=== PATIENT | female | born 1985 | race Caucasian/White ===

== ENCOUNTER 2017-09-22 06:57 | Emergency (ER) | payer OTHER, SELFPAY ==
[2017-09-22 07:03] VITALS: BP 138/74; PULSE 110; RESP 16; TEMP 36.7; O2SAT 99; BMI 22.1
[2017-09-22 09:09] LABS: Basophils % 0.1 % (0.1-2.0); Eosinophils # 0.1 K/mm3 (0.0-0.4); Eosinophils % 0.5 % (0.1-12.0); Hemoglobin 16.2 g/dL (12.2-16.2); Lymphocytes # 1.5 K/mm3 (0.7-4.5); Lymphocytes % 14.5 K/mm3 (10-50); Mean Corpuscular HGB Conc 32.3 g/dL (31.8-35.4); Mean Corpuscular Hemoglobin 29.2 pg (27.0-31.2); Mean Corpuscular Volume 90.2 fl (81-99); Mean Platelet Volume 8.7 fl (7.4-10.4); Monocytes # 0.8 K/mm3 (0.1-1.0); Monocytes % 7.4 % (1.7-9.3); Neutrophils # 8.2 K/mm3 (1.8-7.8); Neutrophils % 77.5 % (37.0-80.0); Platelet Count 221 K/mm3 (142-424); Red Blood Count 5.54 M/mm3 (4.20-5.40); Red Cell Distribution Width 12.9 % (11.5-17.5); White Blood Count 10.6 K/mm3 (4.8-10.8)
--- NOTE | 2017-09-22 09:15 | HMH.EDGENADL ---
ED Disposition Clinical Impression: Abscess of neck, IV drug user Disposition: Xfer Short-Term Hosp Condition on Discharge: Fair Instructions: DI for Skin Abscess Additional Instructions: She will be transferred to [facility] under Dr. Kaur/ Jaxon service. Referrals: Dane Conn MD [Primary Care Provider] - - Critical Care Critical Care Time: No Attestation: On 09/22/17, the high probability of a clinically significant, sudden or life threatening deterioration of the following system(s) required my full and direct attention, intervention and personal management. The time I documented below is in addition to time spent performing reported procedures but includes the following listed in this critical care notation. Medical Decision Making - Sanket Inquiry Pt receiving controlled substance: No Sanket was queried for this patient: No Vital Signs: 09/22/17 07:03 09/22/17 10:28 Temperature 98.1 F 98.4 F Temperature Source Oral Oral Pulse Rate [Right Radial] 110 H 92 H Respiratory Rate 16 18 Blood Pressure [Right Arm] 138/74 120/72 Blood Pressure Mean [Right Arm] 95 88 Blood Pressure Source [Right Arm] Automatic Cuff Automatic Cuff Blood Pressure Position [Right Arm] Sitting Sitting 02 Sat by Pulse Oximetry 99 98 Oxygen Delivery Method Room Air Room Air - Lab Data Lab Results 09/22/17 08:40: WBC 10.6, RBC 5.54 H, Hgb 16.2, Hct 50.0 H, MCV 90.2, MCH 29.2, MCHC 32.3, RDW 12.9, Plt Count 221, MPV 8.7, Neut % (Auto) 77.5, Lymph % (Auto) 14.5, Ashley % (Auto) 7.4, Eos % (Auto) 0.5, Baso % (Auto) 0.1, Neut # (Auto) 8.2 H, Lymph # (Auto) 1.5, Ashley # (Auto) 0.8, Eos # (Auto) 0.1, Baso # (Auto) 0.0 09/22/17 08:40: Sodium 136, Potassium 4.0, Chloride 98, Carbon Dioxide 29, Anion Gap 13.0, BUN 13, Creatinine 0.56, Estimated Creat Clear 133, Estimated GFR 128, Est GFR ( Amer) 155, Glucose 90, Calcium 9.7, Total Bilirubin 0.5, AST 12 L, ALT 24, Alkaline Phosphatase 96, Total Protein 8.4 H, Albumin 3.8, Globulin 4.6 H, Albumin/Globulin Ratio 0.8 L 09/22/17 08:40: Lactic Acid 1.2 Result diagrams: 09/22/17 08:40 09/22/17 08:40 Orders (Tests/Meds): ED MEDICATIONS Discontinued Medications Generic Name Dose Route Start Last Admin Trade Name Keyshawn PRN Reason Stop Dose Admin Vancomycin HCl 1,000 mg/ 250 mls @ 125 mls/hr 09/22/17 09:14 09/22/17 09:31 Sodium Chloride IV 09/22/17 09:15 125 mls/hr ONCE ONE Administration Protocol Ibuprofen 600 mg 09/22/17 09:15 09/22/17 09:31 Motrin 600mg Tablet PO 09/22/17 09:16 600 mg ONCE ONE Administration Iopamidol 75 ml 09/22/17 10:12 09/22/17 10:13 [id number]; 75ml Vial IV 09/22/17 10:13 75 ml ONCE ONE Administration Sodium Chloride 10 ml 09/22/17 10:12 09/22/17 10:13 Rad-Saline Flush 10ml Syringe IV 09/22/17 10:13 10 ml ONCE ONE Administration ORDERS Category Date Time Status Blood Culture Stat Micro 09/22/17 08:40 Received - CT Data CT Scan: C-Spine Time Received: 11:[address] Reviewed: Yes: I have viewed the radiologist's interpretation Preliminary Findings: Abnormal Findings Narrative: Please see the entire report. Medical Decision Narrative: Main the stable in no respiratory distress obtain the CT report. 11 Am I spoke with Dr Kaur from [facility] ED who accepted the patient. Also, I spoke with Dr Coates from ENT and gave him an update. General Adult HPI - General Chief complaint: Skin/Abscess/Foreign Body Stated complaint: Spot on neck Time Seen by Provider: 09/22/17 08:30 Mode of Arrival: Ambulatory Limitations: No Limitations Description of Symptoms (Recalled from ER Triage Doc. by RN): Abcess on right side of neck - History of Present Illness HPI narrative: 31 years old white female smoker drug addict. She usually uses heroin. 5 days ago, she injected crack cocaine into her neck veins on the right side and she missed. It resulted in a progressive swelling of
--- NOTE | 2017-09-22 09:19 | ED_ITS ---
ED Disposition Clinical Impression: Abscess of neck, IV drug user Disposition: Xfer Short-Term Hosp Condition on Discharge: Fair Instructions: DI for Skin Abscess Additional Instructions: She will be transferred to [facility] under Dr. Kaur/ Jaxon service. Referrals: Dane Conn MD [Primary Care Provider] - - Critical Care Critical Care Time: No Attestation: On 09/22/17, the high probability of a clinically significant, sudden or life threatening deterioration of the following system(s) required my full and direct attention, intervention and personal management. The time I documented below is in addition to time spent performing reported procedures but includes the following listed in this critical care notation. Medical Decision Making - Sanket Inquiry Pt receiving controlled substance: No Sanket was queried for this patient: No Vital Signs: 09/22/17 07:03 09/22/17 10:28 Temperature 98.1 F 98.4 F Temperature Source Oral Oral Pulse Rate [Right Radial] 110 H 92 H Respiratory Rate 16 18 Blood Pressure [Right Arm] 138/74 120/72 Blood Pressure Mean [Right Arm] 95 88 Blood Pressure Source [Right Arm] Automatic Cuff Automatic Cuff Blood Pressure Position [Right Arm] Sitting Sitting 02 Sat by Pulse Oximetry 99 98 Oxygen Delivery Method Room Air Room Air - Lab Data Lab Results 09/22/17 08:40: WBC 10.6, RBC 5.54 H, Hgb 16.2, Hct 50.0 H, MCV 90.2, MCH 29.2, MCHC 32.3, RDW 12.9, Plt Count 221, MPV 8.7, Neut % (Auto) 77.5, Lymph % (Auto) 14.5, [place] % (Auto) 7.4, Eos % (Auto) 0.5, Baso % (Auto) 0.1, Neut # (Auto) 8.2 H, Lymph # (Auto) 1.5, [place] # (Auto) 0.8, Eos # (Auto) 0.1, Baso # (Auto) 0.0 09/22/17 08:40: Sodium 136, Potassium 4.0, Chloride 98, Carbon Dioxide 29, Anion Gap 13.0, BUN 13, Creatinine 0.56, Estimated Creat Clear 133, Estimated GFR 128, Est GFR ( Amer) 155, Glucose 90, Calcium 9.7, Total Bilirubin 0.5, AST 12 L, ALT 24, Alkaline Phosphatase 96, Total Protein 8.4 H, Albumin 3.8 , Globulin 4.6 H, Albumin/Globulin Ratio 0.8 L 09/22/17 08:40: Lactic Acid 1.2 Result diagrams: 09/22/17 08:40 09/22/17 08:40 Orders (Tests/Meds): ED MEDICATIONS Discontinued Medications Generic Name Dose Route Start Last Admin Trade Name Freq PRN Reason Stop Dose Admin Vancomycin HCl 1,000 mg/ 250 mls @ 125 mls/hr 09/22/17 09:14 09/22/17 09:31 Sodium Chloride IV 09/22/17 09:15 125 mls/hr ONCE ONE Administration Protocol Ibuprofen 600 mg 09/22/17 09:15 09/22/17 09:31 Motrin 600mg Tablet PO 09/22/17 09:16 600 mg ONCE ONE Administration Iopamidol 75 ml 09/22/17 10:12 09/22/17 10:13 [id number]; 75ml Vial IV 09/22/17 10:13 75 ml ONCE ONE Administration Sodium Chloride 10 ml 09/22/17 10:12 09/22/17 10:13 Rad-Saline Flush 10ml Syringe IV 09/22/17 10:13 10 ml ONCE ONE Administration ORDERS Category Date Time Status Blood Culture Stat Micro 09/22/17 08:40 Received - CT Data CT Scan: C-Spine Time Received: 11:[address] Reviewed: Yes: I have viewed the radiologist's interpretation Preliminary Findings: Abnormal Findings Narrative: Please see the entire report. Medical Decision Narrative: Main the stable in no respiratory distress obtain the CT report. 11 Am I spoke wit
[2017-09-22 09:25] LABS: Alanine Aminotransferase 24 U/L (12-78); Alkaline Phosphatase 96 U/L (46-116); Aspartate Amino Transferase 12 U/L (15-37); Bilirubin,Total 0.5 mg/dL (0.2-1.0); Blood Urea Nitrogen 13 mg/dL (7-18); Calcium 9.7 mg/dL (8.5-10.1); Carbon Dioxide 29 mmol/L (21.0-32.0); Chloride 98 mmol/L (98-107); Creatinine Clearance Estimated 133 mL/min (0-300); Creatinine,Serum 0.56 mg/dL (0.55-1.02); Estimated Glomerular Filt Rate 128 ml/min (>60); GFR (African American) 155 ML/MIN (>60); Glucose 90 mg/dL (74-106); Sodium 136 mmol/L (136-145); Total Protein,Serum 8.4 gm/dL (6.4-8.2)
[2017-09-22 09:30] LABS: Lactic Acid 1.2 mmol/L (0.4-2.0)
--- NOTE | 2017-09-22 09:44 | CT_ITS ---
CT soft tissue neck w con COMPARISON: None HISTORY: Swelling and tenderness right side of neck for the past couple of days, known IV drug user TECHNIQUE: Multiaxial scans obtained from the base of skull to the upper chest and were performed with IV contrast. Sagittal coronal reformats were evaluated as well. FINDINGS: The parotid glands appear normal and symmetrical bilaterally. There is a hypodense mass with irregular enhancing borders in the posterior triangle of the neck right side just posterior to the sternocleidomastoid muscle and inferior to the parotid gland measuring 3.3 x 2.1 x 1.5 cm. This is consistent with an abscess. There is diffuse edema and increased attenuation of subcutaneous tissues overlying this inflammatory mass. There is no compromise of the airway. There are no abnormally enlarged cervical lymph nodes. IMPRESSION: Hypodense mass with enhancing borders consistent with an abscess in the posterior triangle of the neck just posterior and slightly deep to the sternocleidomastoid muscle with probable overlying cellulitis of the subcutaneous tissue and skin
[2017-09-22 10:05] LABS: Albumin Level 3.8 gm/dL (3.4-5.0); Albumin/Globulin Ratio 0.8 (1.1-1.8); Globulin 4.6 gm/dl (1.3-3.2)
[2017-09-22 10:28] VITALS: BP 120/72; PULSE 92; RESP 18; TEMP 36.9; O2SAT 98
[2017-09-22 11:11] VITALS: BP 125/78; PULSE 96; RESP 18; TEMP 36.8; O2SAT 97
[2017-09-22 12:25] VITALS: BP 138/78; PULSE 74; RESP 16; TEMP 36.9
== END 2017-09-22 12:28 | disposition short-term general hospital (02) ==
PROVIDERS: Emergency Medicine; Emergency Provider Emergency Medicine; Family Provider Emergency Medicine; PCP Emergency Medicine
DX: L02.11 Cutaneous abscess of neck (principal); Z88.6 Allergy status to analgesic agent; F17.210 Nicotine dependence, cigarettes, uncomplicated; F11.20 Opioid dependence, uncomplicated
CPT/HCPCS: 70491; 80053; 83605; 85025; 87040; 96365; 99284; J3370; Q9967

== ENCOUNTER 2019-10-08 08:09 | Emergency (ER) | payer MEDICAID, SELFPAY ==
[2019-10-08 08:19] VITALS: BP 157/132; PULSE 104; RESP 22; TEMP 36.4; O2SAT 99; BMI 24.7
--- NOTE | 2019-10-08 08:27 | CT_ITS ---
Procedure: CT ABDOMEN PELVIS W CON Patient Age:33Y CLINICAL INDICATION: LLQ PAIN, pain extends to the left pelvis. COMPARISON: CT ABDOMEN PELVIS WO CON from 06/08/2019 TECHNIQUE: Hand injection of 75 cc Optiray 350 due to poor IV access Diluted Gastrografin Oral contrast also utilized Helical axial images obtained with axial sagittal and coronal reformats. All CT scans at the facility use one or more dose reduction, viz: automated exposure control, ma/kV adjustment per patient size (including targeted exams where dose is matched to indication, i.e. head), or iterative reconstruction technique. FINDINGS: Lower thorax: No acute finding lung bases clear ABDOMEN: Liver: No masses or biliary dilatation. Gallbladder: Surgically removed. Generous common duct reflecting post cholecystectomy changes Pancreas: No masses or peripancreatic fluid collections. Spleen: Normal to upper normal sized the Adrenals: unremarkable tract ======= Kidneys/ureters: No urinary tract obstruction. anterior aspect lower pole left kidney. Right kidney. Tiny of 5 mm cyst lower pole. No ureteral dilatation. PELVIS: Reproductive: Uterus normal size 11.5 mm focal low-density along the endometrium at the superior left uterus, towards left cornu.. Nonspecific could be a small fibroid. Suggest verify negative test. Appears to be a tampon in place at the vaginal vault. Relatively lucent, cystic areas towards the inferior vaginal vault could reflect some María or Bartholin's duct cyst. Incidental equivocal observation require correlation Ovaries no adnexal masses. Likely scattered follicular cysts throughout moderate size ovaries But no significant free fluid cul-de-sac Bladder: Nondistended. No obvious stones or masses. GI TRACT ========= Appendix visualized and normal. Large bowel. Prominent, increased stool throughout right and transverse colon through the splenic flexure. Suggesting moderate constipation in these regions. Moderate stool is seen at the descending colon. In contrast is sigmoid colon is relatively empty. Upper normal wall thickness throughout the sigmoid colon--of suspect reflects merely its lack of distension. Tend to doubt colitis unless symptoms suggest such At the rectum there is lack of stool but moderate gaseous distention of rectum. Small bowel. The oral contrast has only reached the proximal ileum. Small bowel generous in caliber throughout measuring up to 2.5 cm. The oral contrast has not reached mid and distal ileum. This either could reflect timing or mild ileus but the borderline distention along with increased fluid throughout the distal ileum is suggestive of a mild ileus-Correlation required. No wall thickening nor inflammatory changes of small bowel additionally evident. . Peritoneum: No abnormal fluid collections. No obvious inflammatory changes. No free air. Lymph nodes: No enlarged lymph nodes apparent. Unremarkable early atherosclerotic calcification iliac vessels noted evidence of abdominal aortic aneurysm. No retroperitoneal hemorrhage evident. Bones: No acute fracture IMPRESSION: 1. No definitive acute findings. Only minor observations 2. Oral contrast has only reached proximal ileum.. Increased fluid with borderline distention of of the distal ileum noted but these features may reflect a mild ileus nonspecific ileus. . Terminal ileum and appendix appear normal . 3. Prominent increased solid stool seen throughout the right and transverse colon through the splenic flexure. Suggest moderate constipation right and transverse colon However and contrast there is lack of stool at a fairly empty rectosigmoid,. With upper no
[2019-10-08 08:34] LABS: Appearance,Urine CLEAR (Clear); Bilirubin,Urine Negative (Negative); Blood, Urine Negative (Negative); Color,Urine YELLOW (Yellow); Glucose,Urine (UA) Negative (Negative); Ketones,Urine Negative (Negative); Leukocyte Esterase,Urine Negative (Negative); Microscopic, Urine URINE MICROSCOPIC (MICROSCOPIC); Nitrate,Urine Negative (Negative); Protein,Urine Negative (Negative); Specific Gravity, Urine >= 1.030 (1.005-1.030); Urobilinogen,Urine 0.2 EU/dl (0.2)
[2019-10-08 08:38] LABS: Basophils # 0.2 K/mm3 (0-0.2); Basophils % 3.1 % (0.1-2.0); Eosinophils # 0.2 K/mm3 (0.0-0.4); Eosinophils % 3.8 % (0.1-12.0); Hematocrit 45.5 % (37.0-47.0); Hemoglobin 14.9 g/dL (12.2-16.2); Lymphocytes # 1.8 K/mm3 (0.7-4.5); Lymphocytes % 29.6 % (10-50); Mean Corpuscular HGB Conc 32.8 g/dL (31.8-35.4); Mean Corpuscular Hemoglobin 29.9 pg (27.0-31.2); Mean Corpuscular Volume 91.2 fl (81-99); Mean Platelet Volume 8.6 fl (7.4-10.4); Monocytes # 0.5 K/mm3 (0.1-1.0); Monocytes % 7.6 % (1.7-9.3); Neutrophils # 3.4 K/mm3 (1.8-7.8); Platelet Count 278 K/mm3 (142-424); Red Blood Count 4.99 M/mm3 (4.20-5.40); White Blood Count 6.1 K/mm3 (4.8-10.8)
[2019-10-08 08:48] LABS: Benzodiazepines Screen,Urine Negative ng/ml (<200)
[2019-10-08 08:49] LABS: Barbiturates Screen,Urine Negative ng/ml (<200); Methadone Screen,Urine Negative ng/ml (<300)
[2019-10-08 08:50] LABS: Cannabinoid Screen,Urine Negative ng/ml (<50)
[2019-10-08 08:51] LABS: Cocaine Screen,Urine Negative ng/ml (<300); Opiate Screen,Urine Negative ng/ml (<300)
[2019-10-08 08:52] LABS: Phencyclidine Screen,Urine Negative ng/ml (<25)
[2019-10-08 08:53] LABS: Bacteria,Urine 2+ /lpf; Mucus,Urine 1+ /lpf
--- NOTE | 2019-10-08 09:27 | PC.NURSE ---
PT FINISHED DRINKING CONTRAST. RAD NOTIFIED.
[2019-10-08 09:40] LABS: Chloride 102 mmol/L (98-107); Potassium 3.9 mmoL/L (3.5-5.1); Sodium 138 mmol/L (136-145)
[2019-10-08 09:42] LABS: Alanine Aminotransferase 30 U/L (12-78); Amylase 54 U/L (30-110); Aspartate Amino Transferase 30 U/L (14-36); Blood Urea Nitrogen 9 mg/dl (7-17); Creatinine Clearance Estimated 158 mL/min (50-200); Estimated Glomerular Filt Rate 144 ml/min (>60); GFR (African American) 174 ML/MIN (>60)
[2019-10-08 09:43] LABS: Albumin Level 3.9 g/dl (3.5-5.0); Albumin/Globulin Ratio 1.3 (1.1-1.8); Alkaline Phosphatase 59 U/L (38-126); Anion Gap 8.9 mEq/L (5-15); Bilirubin,Total 0.2 mg/dl (0.2-1.3); Calcium 9.5 mg/dl (8.4-10.2); Carbon Dioxide 31 mmol/L (22.0-30.0); Globulin 2.9 g/dL (1.3-3.2); Glucose 82 mg/dl (74-100); Lipase 15 U/L (23-300); Total Protein,Serum 6.8 g/dl (6.3-8.2)
--- NOTE | 2019-10-08 12:10 | PC.NURSE ---
PT AMBULATING TO BATHROOM AT THIS TIME.
--- NOTE | 2019-10-08 12:11 | PC.NURSE ---
PT HAS COME OUT OF THE BATHROOM, REQUESTING TO LEAVE. PT STATES THAT SHE IS TIRED, HUNGRY, AND HAS BEEN HERE FOR HOURS AND JUST WANTS TO GO HOME, NO MATTER IF HER CT RESULTS ARE BACK OR NOT. NURSE CALLED RAD TO INQUIRE ON THE AMOUNT OF TIME REMAINING BEFORE RADIOLOGIST READS THE CT IMAGES. RAD ADVISES THAT THE CT IS BEING DICTATED AT THIS TIME. PT MADE AWARE AT THIS TIME.
--- NOTE | 2019-10-08 12:31 | HMH.EDGENADL ---
ED Disposition Clinical Impression: Obstipation, Uterine fibroid Disposition: Home, Self-Care Condition on Discharge: Good Instructions: DI for Acute Pain -- Adult Additional Instructions: Please follow-up with primary care in the next 2 weeks. Referrals: Dane Conn MD [Primary Care Provider] - - Critical Care Critical Care Time: No Attestation: On 10/08/19, the high probability of a clinically significant, sudden or life threatening deterioration of the following system(s) required my full and direct attention, intervention and personal management. The time I documented below is in addition to time spent performing reported procedures but includes the following listed in this critical care notation. Medical Decision Making - Medical Records Medical records reviewed: Yes: I reviewed the patient's medical records. - Sanket Inquiry Pt receiving controlled substance: No Vital Signs: 10/08/19 08:19 Temperature 97.6 F Temperature Source Oral Pulse Rate [Right Radial] 104 H Respiratory Rate 22 Blood Pressure [Right Arm] 157/132 H Blood Pressure Mean [Right Arm] 140 Blood Pressure Source [Right Arm] Automatic Cuff Blood Pressure Position [Right Arm] Sitting 02 Sat by Pulse Oximetry 99 Oxygen Delivery Method Room Air - Lab Data Lab results reviewed: Yes: I reviewed the patient's lab results. Lab Results 10/08/19 08:15: Urine Color Yellow, Urine Appearance Clear, Urine pH 6.0, Ur Specific [place] >= 1.030, Urine Protein Negative, Urine Glucose (UA) Negative, Urine Ketones Negative, Urine Blood Negative, Urine Nitrate Negative, Urine Bilirubin Negative, Urine Urobilinogen 0.2, Ur Leukocyte Esterase Negative, Urine RBC 3-5, Urine WBC 10-20, Ur Squamous Epith Cells 10-20, Urine Bacteria 2+, Urine Mucus 1+ 10/08/19 08:15: Urine Opiates Screen Negative, Urine Methadone Screen Negative, Ur Barbituates Screen Negative, Ur Phencyclidine Scrn Negative, Ur Amphetamines Screen Not Reportable, U Benzodiazepines Scrn Negative, Urine Cocaine Screen Negative, U Marijuana (THC) Screen Negative 10/08/19 08:28: WBC 6.1, RBC 4.99, Hgb 14.9, Hct 45.5, MCV 91.2, MCH 29.9, MCHC 32.8, RDW 13.0, Plt Count 278, MPV 8.6, Neut % (Auto) 56.0, Lymph % (Auto) 29.6, [place] % (Auto) 7.6, Eos % (Auto) 3.8, Baso % (Auto) 3.1 H, Neut # (Auto) 3.4, Lymph # (Auto) 1.8, [place] # (Auto) 0.5, Eos # (Auto) 0.2, Baso # (Auto) 0.2 10/08/19 09:25: Sodium 138, Potassium 3.9, Chloride 102, Carbon Dioxide 31 H, Anion Gap 8.9, BUN 9, Creatinine 0.50 L, Estimated Creat Clear 158, Estimated GFR 144, Est GFR ( Amer) 174, Glucose 82, Calcium 9.5, Total Bilirubin 0.2, AST 30, ALT 30, Alkaline Phosphatase 59, Total Protein 6.8, Albumin 3.9, Globulin 2.9, Albumin/Globulin Ratio 1.3, Amylase 54, Lipase 15 L Result diagrams: 10/08/19 08:28 10/08/19 09:25 Orders (Tests/Meds): ED MEDICATIONS Generic Name Dose Route Start Last Admin Trade Name Freq PRN Reason Stop Dose Admin Sodium Chloride 10 ml 10/08/19 12:21 Sodium Chloride 0.9% 10ml Vial IV 11/07/19 12:20 NEEDED PRN to Dilute Lorazepam inj Discontinued Medications Generic Name Dose Route Start Last Admin Trade Name Freq PRN Reason Stop Dose Admin Diatrizoate Meglum/Diatrizoate Sod 30 ml 10/08/19 08:35 10/08/19 09:30 Gastrografin 66%-10% 30ml PO 10/08/19 08:36 30 ml ONCE ONE Administration Sodium Chloride 1,000 mls @ 999 mls/hr 10/08/19 08:28 10/08/19 08:35 Sod Chlor 0.9% 1000ml Bag IV 10/08/19 09:28 999 mls/hr .[id number] ONE Administration Ioversol 75 ml 10/08/19 11:24 10/08/19 11:25 Rad-Optiray 350 100ml Vial IV 10/08/19 11:25 75 ml ONCE ONE Administration Protocol Ketorolac Tromethamine 30 mg 10/08/19 08:27 10/08/19 08:34 Toradol 30mg/Ml Vial IV 10/08/19 08:28 30 mg ONCE ONE Administration Lorazepam 1 mg 10/08/19 12:21 10/08/19 12:25 Ativan 2mg/Ml Vial IV 10/08/19 12:22 1 mg ONCE ONE Administration Morphine
[2019-10-08 12:38] VITALS: BP 127/68; PULSE 69; RESP 18; TEMP 36.7; O2SAT 98
[2019-10-12 10:15] LABS: Amphetamine Positive (.); Amphetamines Positive (.); Methamphetamine Positive (.)
[2019-10-12 10:49] LABS: Amphetamine (GC/MS) >4000 ng/mL (Cutoff=500); Methamphetamine (GC/MS) >4000 ng/mL (Cutoff=500)
== END 2019-10-08 12:41 | disposition home or self-care (01) ==
PROVIDERS: Emergency Provider Family Medicine; PCP Emergency Medicine
DX: D25.9 Leiomyoma of uterus, unspecified (principal); K59.00 Constipation, unspecified; F17.210 Nicotine dependence, cigarettes, uncomplicated
CPT/HCPCS: 74177; 80053; 80305; 80324; 81001; 82150; 83690; 85025; 87086; 96365; 96375; 99283; J2405; Q9967

== ENCOUNTER 2020-03-25 14:19 | Emergency (ER) | payer SELFPAY ==
[2020-03-25 14:20] VITALS: BP 123/85; PULSE 80; RESP 19; TEMP 37.2; O2SAT 96; BMI 28.3
[2020-03-25 14:44] VITALS: BMI 21.6
--- NOTE | 2020-03-25 14:54 | HMH.EDGENADL ---
ED Disposition Clinical Impression: Contact dermatitis Qualifiers: Contact dermatitis type: allergic Contact dermatitis trigger: non-food plants Qualified Code(s): L23.7 - Allergic contact dermatitis due to plants, except food Disposition: Home, Self-Care Condition on Discharge: Fair Referrals: Dane Conn MD [Primary Care Provider] - - Critical Care Critical Care Time: No Attestation: On 03/25/20, the high probability of a clinically significant, sudden or life threatening deterioration of the following system(s) required my full and direct attention, intervention and personal management. The time I documented below is in addition to time spent performing reported procedures but includes the following listed in this critical care notation. Medical Decision Making - Medical Records Medical records reviewed: Yes: I reviewed the patient's medical records. - Sanket Inquiry Pt receiving controlled substance: No Orders (Tests/Meds): ED MEDICATIONS Generic Name Dose Route Start Last Admin Trade Name Freq PRN Reason Stop Dose Admin Sodium Chloride 8 ml 03/25/20 14:46 Sodium Chloride 0.9% 10ml Vial IV 04/24/20 14:45 NEEDED PRN dilute pepcid Discontinued Medications Generic Name Dose Route Start Last Admin Trade Name Freq PRN Reason Stop Dose Admin Diphenhydramine HCl 50 mg 03/25/20 14:45 03/25/20 14:48 Diphenhydramine 50mg/Ml Vial IV 03/25/20 14:46 50 mg ONCE ONE Administration Famotidine 20 mg 03/25/20 14:46 03/25/20 14:48 Famotidine 20mg/2ml Vial IV 03/25/20 14:47 20 mg ONCE ONE Administration Methylprednisolone Sodium Succinate 125 mg 03/25/20 14:45 03/25/20 14:48 Methylprednisolone Sod Succ 125mg Vial IV 03/25/20 14:46 125 mg ONCE ONE Administration Metoclopramide HCl 10 mg 03/25/20 14:45 03/25/20 14:48 Metoclopramide Hcl 10mg/2ml Vial IVP 03/25/20 14:46 10 mg ONCE ONE Administration General Adult HPI - General Stated complaint: allergic reaction Time Seen by Provider: 03/25/20 14:50 Mode of Arrival: Ambulatory Source of Information: Patient Limitations: No Limitations - History of Present Illness HPI narrative: This is a 34-year-old female that presents with facial swelling which is progressive x4 days. Patient does report recently working [place] and attributed her this to that as she did have some itching and swelling but none to this degree as today. She denies any respiratory involvement no shortness of breath. No fever no chills no chest pain orthopnea. Note patient denies starting new medications or using any new soaps or topical substances. - Related Data Home Medications Medication Instructions Recorded Confirmed No Known Home Medications 11/01/19 11/01/19 Allergies Allergy/AdvReac Type Severity Reaction Status Date / Time No Known Allergies Allergy Verified 11/01/19 14:25 [facility] History - Hepatitis A Screen Attestation statement:: This patient has been screened for Hepatitis A risk factors. I have reviewed the patient's past medical history: Yes Medical History: Reports:: MRSA Denies:: Cancer, Diabetes Mellitus Type 1, Diabetes Mellitus Type 2 Other Surgeries: Yes: Cholecystectomy, , Tubal Ligation, Other Amputation: No Fractures: No Comment: Kidney Stones. Cyst removed from eye. Ablation - Social History Smoking Status: Current every day smoker Tobacco Type: cigarettes # Packs/Day (cigarettes): 1 Alcohol Intake: former Substance Use Type: heroin, IV drugs Occupational Status: unemployed Family Hx:: No significant family history [employer] history: Tubal Ligation ROS Obtained: Yes All systems reviewed & no additional complaints Physical Exam - General General appearance: alert, in no apparent distress - Head Head exam: atraumatic, other (bilateral periorbital/maxillary swelling ) - Eye Eye exam: Present: normal carmen
[2020-03-25 15:06] VITALS: BP 112/75; PULSE 72; O2SAT 94
[2020-03-25 15:24] VITALS: BP 132/85; PULSE 80; RESP 17; TEMP 36.8; O2SAT 100
== END 2020-03-25 15:24 | disposition home or self-care (01) ==
PROVIDERS: Emergency Provider Emergency Medicine; PCP Emergency Medicine
DX: L23.7 Allergic contact dermatitis due to plants, except food (principal); F17.210 Nicotine dependence, cigarettes, uncomplicated; Z87.442 Personal history of urinary calculi; Z90.49 Acquired absence of other specified parts of digestive tract
CPT/HCPCS: 96374; 96375; 99282

== ENCOUNTER 2021-06-17 07:50 | Emergency (ER) | payer SELFPAY ==
[2021-06-17 08:00] VITALS: BP 151/90; PULSE 89; RESP 18; TEMP 36.7; O2SAT 96; BMI 25.7
[2021-06-17 08:13] LABS: Microscopic, Urine URINE MICROSCOPIC (MICROSCOPIC)
[2021-06-17 08:16] LABS: Appearance,Urine CLEAR (Clear); Bilirubin,Urine Negative (Negative); Blood, Urine 3+ (Negative); Color,Urine YELLOW (Yellow); Glucose,Urine (UA) Negative (Negative); Ketones,Urine Negative (Negative); Leukocyte Esterase,Urine Negative (Negative); Nitrate,Urine POSITIVE (Negative); Protein,Urine Negative (Negative); Urobilinogen,Urine 0.2 EU/dl (0.2)
[2021-06-17 08:18] LABS: Urine Pregnancy, HCG Qual. Negative (Negative)
--- NOTE | 2021-06-17 08:19 | CT_ITS ---
PROCEDURE: CT ABDOMEN PELVIS WO CON CLINICAL INDICATION: left flank pain h/o stones COMPARISON: CT CT ABDOMEN PELVIS W CON from 10/08/2019 TECHNIQUE: Axial images obtained with sagittal and coronal reformats. All CT scans at the facility use one or more dose reduction, viz: automated exposure control, ma/kV adjustment per patient size (including targeted exams where dose is matched to indication, i.e. head), or iterative reconstruction technique. FINDINGS: Lung bases are clear. The liver, spleen, and adrenal glands have an unremarkable appearance. No evidence of pancreatitis. There is a tiny fat density in the junction of the body and tail the pancreas 1-2 mm nonspecific. Follow-up may confirm stability. There are numerous punctate bilateral renal calculi. No ureteral calculus apparent. No intestinal obstruction or free air. No evidence of appendicitis. There is stranding of the fat along the anterior aspect of the uterus and urinary bladder. Air density is present in the vagina consistent with a tampon. IMPRESSION: Numerous punctate bilateral renal calculi. No ureteral calculus or hydronephrosis. There is mild stranding of the peritoneal fat along the anterior aspect of the uterus and anterior bladder region suggesting underlying inflammatory change etiology indeterminate. Dictated by: Tod Feldman MD 06/17/2021 09:06 Tod Feldman MD in [place] 06/17/2021 09:06
--- NOTE | 2021-06-17 08:21 | [facility].EDUROGF ---
ED Disposition Clinical Impression: Left flank pain Disposition: Home, Self-Care Condition on Discharge: Good Instructions: Acute Abdominal Pain, DI for Urinary Tract Infection (UTI), DI for Urinary Tract Infection in Children, DI for Flank Pain Prescriptions: Dicyclomine HCl [Bentyl 10mg capsule] 10 mg PO TID PRN #15 cap PRN Reason: Cramping Transmission Status: [facility] Naproxen [Naproxen 500mg tab] 500 mg PO BID PRN 5 Days #10 tab PRN Reason: Moderate To Severe Pain Transmission Status: [facility] Referrals: Provider,Referral, [Primary Care Provider] - - Critical Care Critical Care Time: No Attestation: On 06/17/21, the high probability of a clinically significant, sudden or life threatening deterioration of the following system(s) required my full and direct attention, intervention and personal management. The time I documented below is in addition to time spent performing reported procedures but includes the following listed in this critical care notation. Medical Decision Making - Sanket Inquiry Pt receiving controlled substance: No Vital Signs: 06/17/21 08:00 06/17/21 09:45 Temperature 98.1 F 98.1 F Temperature Source Oral Oral Pulse Rate 88 Pulse Rate [Left Radial] 89 Respiratory Rate 18 18 Blood Pressure 120/77 Blood Pressure [Right Arm] 151/90 H Blood Pressure Mean [Right Arm] 110 02 Sat by Pulse Oximetry 96 Oxygen Delivery Method Room Air - Lab Data Lab Results 06/17/21 08:00: Urine Color Yellow, Urine Appearance Clear, Urine pH 6.0, Ur Specific [place] 1.020, Urine Protein Negative, Urine Glucose (UA) Negative, Urine Ketones Negative, Urine Blood 3+, Urine Nitrate Positive, Urine Bilirubin Negative, Urine Urobilinogen 0.2, Ur Leukocyte Esterase Negative, Urine RBC Tntc, Urine WBC 3-5, Ur Squamous Epith Cells 3-5, Urine Bacteria None 06/17/21 08:00: Urine HCG, Qual Negative 06/17/21 08:25: WBC 10.5, RBC 5.12, Hgb 16.0, Hct 47.8 H, MCV 93.5, MCH 31.3 H, MCHC 33.5, RDW 13.5, Plt Count 301, MPV 8.9, Neut % (Auto) 72.5, Lymph % (Auto) 19.3, [place] % (Auto) 5.4, Eos % (Auto) 1.5, Baso % (Auto) 1.3, Neut # (Auto) 7.6, Lymph # (Auto) 2.0, [place] # (Auto) 0.6, Eos # (Auto) 0.2, Baso # (Auto) 0.1 06/17/21 08:25: Sodium 142, Potassium 4.3, Chloride 104, Carbon Dioxide 28, Anion Gap 14.3, BUN 13, Creatinine 0.70, Estimated Creat Clear 119, Estimated GFR 96, Est GFR ( Amer) 117, Glucose 78, Calcium 9.2, Total Bilirubin 0.3, AST 26, ALT 20, Alkaline Phosphatase 52, Total Protein 7.8, Albumin 4.8, Globulin 3.0, Albumin/Globulin Ratio 1.6 06/17/21 08:25: Lipase 21 L Result diagrams: 06/17/21 08:25 06/17/21 08:25 Orders (Tests/Meds): ED MEDICATIONS Discontinued Medications Generic Name Dose Route Start Last Admin Trade Name Freq PRN Reason Stop Dose Admin Ketorolac Tromethamine 15 mg 06/17/21 08:19 06/17/21 08:23 Ketorolac 30mg/Ml Vial IV 06/17/21 08:20 15 mg ONCE ONE Administration Ondansetron HCl 4 mg 06/17/21 08:23 06/17/21 08:24 Ondansetron 4mg/2ml Vial IV 06/17/21 08:24 4 mg ONCE ONE Administration Tramadol HCl 50 mg 06/17/21 09:19 06/17/21 09:24 Tramadol 50mg Tablet PO 06/17/21 09:20 50 mg ONCE ONE Administration - Reevaluation(s) Time: 09:21 (reeval, still with mod pain, abd soft, poss renal colic versus menstrual cramps, ok with plan to rx and f/u prn) Female Urogenital HPI - General Chief complaint: Urogenital-Female Stated complaint: pelvic pain Time Seen by Provider: 06/17/21 08:21 Mode of Arrival: Ambulatory Source of Information: Patient Limitations: No Limitations Description of Symptoms (Recalled from ER Triage Doc. by RN): pt to ed c/o left flank pain that radiates into her back. pt states she started what she thought her period yesterday but she now just has light bleeding associated with the flank pain. pt denies urinary symptoms such as burning with
[2021-06-17 08:28] LABS: RBC,Urine TNTC #/hpf (0-3)
[2021-06-17 08:37] LABS: Basophils # 0.1 K/mm3 (0-0.2); Basophils % 1.3 % (0.1-2.0); Eosinophils # 0.2 K/mm3 (0.0-0.4); Eosinophils % 1.5 % (0.1-12.0); Hematocrit 47.8 % (37.0-47.0); Lymphocytes % 19.3 % (10-50); Mean Corpuscular HGB Conc 33.5 g/dL (31.8-35.4); Mean Corpuscular Hemoglobin 31.3 pg (27.0-31.2); Mean Corpuscular Volume 93.5 fl (81-99); Mean Platelet Volume 8.9 fl (7.4-10.4); Monocytes # 0.6 K/mm3 (0.1-1.0); Monocytes % 5.4 % (1.7-9.3); Neutrophils # 7.6 K/mm3 (1.8-7.8); Neutrophils % 72.5 % (37.0-80.0); Platelet Count 301 K/mm3 (142-424); Red Blood Count 5.12 M/mm3 (4.20-5.40); Red Cell Distribution Width 13.5 % (11.5-17.5); White Blood Count 10.5 K/mm3 (4.8-10.8)
[2021-06-17 08:39] LABS: Chloride 104 mmol/L (98-107); Potassium 4.3 mmoL/L (3.5-5.1); Sodium 142 mmol/L (136-145)
[2021-06-17 08:42] LABS: Alanine Aminotransferase 20 U/L (12-78); Albumin Level 4.8 g/dl (3.5-5.0); Albumin/Globulin Ratio 1.6 (1.1-1.8); Alkaline Phosphatase 52 U/L (38-126); Anion Gap 14.3 mEq/L (5-15); Aspartate Amino Transferase 26 U/L (14-36); Bilirubin,Total 0.3 mg/dl (0.2-1.3); Blood Urea Nitrogen 13 mg/dl (7-17); Calcium 9.2 mg/dl (8.4-10.2); Carbon Dioxide 28 mmol/L (22.0-30.0); Creatinine Clearance Estimated 119 mL/min (50-200); Estimated Glomerular Filt Rate 96 ml/min (>60); GFR (African American) 117 ML/MIN (>60); Glucose 78 mg/dl (74-100); Lipase 21 U/L (23-300); Total Protein,Serum 7.8 g/dl (6.3-8.2)
[2021-06-17 09:45] VITALS: BP 120/77; PULSE 88; RESP 18; TEMP 36.7; O2SAT 100
== END 2021-06-17 09:49 | disposition home or self-care (01) ==
PROVIDERS: Emergency Provider Emergency Medicine
DX: R10.2 Pelvic and perineal pain (principal)
CPT/HCPCS: 74176; 80053; 81001; 81025; 83690; 85025; 96374; 96375; 99283; J2405